=== PATIENT | female | born 2000 | race American Indian/Alaskan Native ===

== ENCOUNTER 2019-06-15 10:58 | Emergency (ER) | payer SELFPAY ==
[2019-06-15 12:04] VITALS: BP 133/79
--- NOTE | 2019-06-15 12:05 | Emergency Department Report ---
[facility] Chief Complaint: Eye Problems Stated Complaint: PROBLEM WITH EYES/ITCHY/REDNESS Time Seen by Provider: 06/15/19 12:00 Duration: 2 Days Side: Bilateral Severity: mild Symptoms: Yes Eye Itching, Yes Eye Redness, Yes Purulent Drainage, No Eye Pain, No Mucous Drainage, No Blurred Vision, No Preceding URI, No H/O Allergic Rhinitis, No Contact Lens Use, No Trauma, No Fever, No Headache Other History: This is a 19-year-old female nontoxic well in appearance with no signs of distress presents to the ED with bilateral eye crusting and itching with redness. Patient was seen in [facility] by MD and was given prescrpition but stated is not sure of the name and that all the pharymcys are out of stock. Patient stated had a exam to the eye done with blue light (hall lamp) and was within normal limits. Patient denies any eye pain or foreign body sensation. Patient denies any other symptoms. Denies any blurry vision or visual changes. Denies any fever, chills, headache, nausea, vomiting, chest pain or SOB. Denies any other complaints. Denies any allergies. ED Review of Systems ROS: Stated complaint: PROBLEM WITH EYES/ITCHY/REDNESS Other details as noted in HPI Constitutional: denies: chills, fever Eyes: eye discharge. denies: eye pain, vision change ENT: denies: ear pain, throat pain Respiratory: denies: cough, shortness of breath, wheezing Cardiovascular: denies: chest pain, palpitations Endocrine: no symptoms reported Gastrointestinal: denies: abdominal pain, nausea, diarrhea Genitourinary: denies: urgency, dysuria, discharge Musculoskeletal: denies: back pain, joint swelling, arthralgia Skin: denies: rash, lesions Neurological: denies: headache, weakness, paresthesias Psychiatric: denies: anxiety, depression Hematological/Lymphatic: denies: easy bleeding, easy bruising ED Past Medical Hx - Past Medical History Previous Medical History?: No - Surgical History Past Surgical History?: No - Social History Smoking Status: Never Smoker Substance Use Type: None - Medications Home Medications: Home Medications Medication Instructions Recorded Confirmed Last Taken Type Polymyxin B Sulf/Trimethoprim 2 drops OU TID #1 drops 06/15/19 Unknown Rx [Polytrim Eye Drops] [facility] Exam - Exam General: Vital signs noted. No distress. Alert and acting appropriately. Eye Exam: Both Purulent Discharge, Neither Injection, Neither Chemosis, Neither Abnormal Pupil, Neither EOMI, Neither Eye Foreign Body, Neither Lid Foreign Body, Neither Mucous Discharge, Neither Corneal Edema, Neither Photophobia HEENT: No Nasal Congestion, No Pharyngeal Erythema Remainder of HEENT: Normal Lungs: Yes Clear Lung Sounds, Yes Good Air Exchange, No Wheezes, No Stridor, No Cough, No Nasal Flaring, No Retractions, No Use of Accessory Muscles ED Course - Reevaluation(s) Reevaluation #1: 06/15/19 12:06 Patient is speaking in full sentences with no signs of distress noted. ED Medical Decision Making - Medical Decision Making Patient was instructed to Follow-up with a [employer] doctor in 2 days or if symptoms worsen and continue return to emergency room as soon as possible. At time of discharge, the patient does not seem toxic or ill in appearance. No acute signs of distress noted. Patient agrees to discharge treatment plan of care. No further questions noted by the patient. Critical care attestation.: If time is entered above; I have spent that time in minutes in the direct care of this critically ill patient, excluding procedure time. ED Disposition Clinical Impression: Bilateral conjunctivitis Qualifiers: Conjunctivitis type: acute Acute conjunctivitis type: bacterial Qualified Code(s): H10.33 - Unspecified acute conjunctivitis, bilateral Disposition: DC-01 TO HOME OR SELFCARE Is pt being admited?: No Does the pt Need Aspirin: No Condition: Stable Instructions: Conjunctivitis (ED) Additional Instructions: Follow-up with a [employer] doctor in 2 days or if symptoms worsen and continue return to emergency room as soon as possible. Prescriptions: Polymyxin B Sulf/Trimethoprim [Polytrim Eye Drops] 2 drops OU TID #1 drops Referrals: TANNER MONSALVE MD [Staff Physician] - 3-5 Days PRIMARY CARE, [Referring] - 3-5 Days GILES ANDREWS DO [Staff Physician] - 06/17/19 Forms: Work/School Release Form(ED)
== END 2019-06-15 12:15 | disposition home or self-care (01) ==
LOC: ED 10:58
DX: H10.89 Other conjunctivitis (principal); B96.89 Other specified bacterial agents as the cause of diseases classified elsewhere; Z79.899 Other long term (current) drug therapy
CPT/HCPCS: 99282